=== PATIENT | male | born 1995 | race Caucasian/White ===

== ENCOUNTER 2025-04-23 05:38 | Emergency (ER) | payer OTHER, SELFPAY ==
[2025-04-23 05:39] VITALS: BP 139/98; PULSE 70; RESP 18; TEMP 36.3; O2SAT 100; BMI 27.6
--- OUTSIDE RECORDS SUMMARY | 2025-04-23 06:04 | XMS RPT_ITS | CCD ---
Author Organization [facility] Care Team Providers Care Recreation Leader Name Role Phone Unavailable Primary Care Provider SHANI Bermudez Attending Unavailable Medications Current Medications Medication Drug Class(es) Dates Sig (Normalized) Sig (Original) erythromycin 0.005 mg/mg ophthalmic ointment (1 source) Macrolide, Macrolide Antimicrobial Start: 12-26-2024 End: 01-02-2025 erythromycin (ROMYCIN) 5 mg/gram (0.5 %) ophthalmic ointment Indications: Acute right eye pain , Right eye sensitive to light Use 1 application in the right eye four times daily for 7 days. 3.5 g 12/26/2024 01/02/2025 Active tetracaine hydrochloride 5 mg/ml ophthalmic solution (1 source) [facility]est[facility] Start: 12-26-2024 End: 12-27-2024 tetracaine (PF) 0.5 % 1 drop (OPTICAINE) Completed/Discontinued Medications Medication Drug Class(es) Dates Sig (Normalized) Sig (Original) brompheniramine maleate 0.4 mg/ml / dextromethorphan hydrobromide 2 mg/ml / pseudoephedrine hydrochloride 6 mg/ml oral solution (5 sources) alpha-Adrenergic Agonist, Uncompetitive X-qwrbfn-S-aspartat e Receptor Antagonist, Sigma-1 Agonist Start: 01-18-2022 End: 12-26-2024 take 5 mL by mouth four times daily as needed Brompheniramine-P seudoeph-DM (BROMFED DM) 2-30-10 mg/5 mL syrup Indications: Viral URI Take 5 mL by mouth four times daily as needed. 118 mL 01/18/2022 12/26/2024 Discontinued (Other) Comment on above: Take 5 mL by mouth f our times daily as needed. diphenhydrAMINE-maalox -lidocaine (BMX 1:1:1) 1:1:1 liqd (5 sources) Start: 01-18-2022 End: 12-26-2024 take 5 mL by mouth four times daily diphenhydrAMINE-m aalox-lidocaine (BMX 1:1:1) 1:1:1 liqd Indications: Pharyngitis, unspecified etiology Take 5 mL by mouth four times daily. 120 mL 01/18/2022 12/26/2024 Discontinued (Other) Start: 01-18-2022 take 5 mL by mouth four times daily tckeclrlbaGDNCQ-xgnkgw-abcjntnxa (BMX 1: 1:1) 1:1:1 liqd Indications: Pharyngitis, unspecified etiology Take 5 mL by mouth four times daily. 120 mL 0 01/18/2022 Active Comment on above: Take 5 mL by mouth f our times daily. 12 hr guaiFENesin 600 mg extended release oral tablet (5 sources) Start: 01-18-2022 End: 12-26-2024 take 1 tablet by mouth twice daily guaiFENesin (MUCINEX) 600 mg 12 hr tablet Indications: Viral URI Take 1 tablet by mouth twice daily. 30 tablet 01/18/2022 12/26/2024 Discontinued (Other) Comment on above: Take 1 tablet by venancio twice daily. Problems Problem Classification Problem Date Documented Da te Episodic/Chronic Blindness and vision defects (3 sources) Eyes sensitive to light; Translations: [Visual discomfort, right eye] Onset: 12-26-2024 12-26-2024 Episodic Immunizations and screening for infectious disease (1 source) Contact with and (suspected) exposure to other viral communicable diseases; Translations: [Exposure to SARS-associated coronavirus] Episodic Other eye disorders (2 sources) Pain in eye; Translations: [Ocular pain, right eye] 12-26-2024 Episodic Other eye disorders (1 source) Ocular pain, right eye; Translations: [Acute right eye pain] Onset: 12-26-2024 Episodic Other upper respiratory infections (2 sources) Viral upper respiratory tract infection; Translations: [Acute upper respiratory infection, unspecified] Episodic Results Test Name Value Interpretation Reference Range Facil ity CNOVon 12-26-2024 CNOV Office Visit ([facility] ) ANTOINETTE KESSLER ([id number]) 1995 M Date Time Provider Department 12/26/24 2:10 PM SHANI READ During your visit today, we recorded the following information about you: Temperature Pulse Respiration Blood pressure 96.8 degrees 75/minute 18/minute 121/74 Weight Height 90.9 kg 1.854 m Shani Read APRN.[facility] 12/26/2024 2:38 PM Addendum [facility] Subjective The patient is a 29-year-old male presenting with acute right eye pain and photophobia. HPI Right Eye Pain and Photophobia: - Acute onset of right eye pain and photophobia began while sitting at work. - Describes sensation as if something is lodged in the eye. - Pain initially noticed with blinking, followed by increased watering and light sensitivity. - No known trauma or foreign body entry. - Denies flashes of light. - No significant crusting or drainage observed. Review of Systems Eyes: (+) right eye pain, (+) right eye foreign body sensation, (+) right photophobia, (+) right eye tearing, (-) ocular discharge, (-) flashes of light Objective BP 121/74 (BP Site: Right Arm, BP Position: Sitting, BP Cuff Size: Regular Adult) Pulse 75 Temp 36 ?C (96.8 ?F) (Right Tympanic) Resp 18 Ht 185.4 cm (6' 1) Wt 90.9 kg (200 lb 6.4 oz) SpO2 98% BMI 26.44 kg/m? Physical Exam General: No acute distress. HEENT: Right eyelid appears slightly swollen, no foreign bodies or debris observed in the right eye, no evidence of a stye or blocked pores. No uptake noted with fluorescine and tetracaine with hill lamp MDM 1. Acute right eye pain (H57.11) 2. Right eye sensitive to light (H53.141) - No foreign bodies or abrasions noted on examination; eyelid appears slightly swollen, but no blocked pores or stye observed. - Differential diagnoses include uveitis and episcleritis, which require ophthalmological evaluation. - Administered topical anesthetic and fluorescein dye; no corneal abrasions or foreign bodies detected. - Advised patient to seek immediate ophthalmological consultation for further evaluation and management. - Patient instructed to contact [facility] for a same-day appointment. - Will also contact [facility] to facilitate an appointment if needed. - No foreign body or corneal scratch was found after applying numbing drops and fluorescein dye; your right eyelid is slightly swollen. - The numbing drops will last for a few hours, reducing pain and light sensitivity temporarily. - Call [facility] now to request eye exam; with right eye pain and light sensitivity. - If [facility] cannot see you today, consider calling [facility] to find a same-day appointment Medical Decision Making: Problems: Moderate: New problem with uncertain prognosis Data: Unique test result(s) reviewed: 1 Unique test(s) ordered: 1 Risk: Moderate: Drug management Medical Decision Making Level: 4 - Moderate Procedures Allergies As of Date: 12/26/2024 (No Known Allergies) Date Reviewed: 12/26/2024 Reviewed by: Andriy Murry MA - Fully Assessed Reason for Visit: Conjunctivitis [24] Cmt: Possible pinkeye in the right eye that started yesterday, burning, light sensitivity, sinus congestion, feels like there is something in the top R eyelid, Primary Visit Diagnosis:Acute right eye pain [H57.11] Other Visit Diagnosis:Right eye sensitive to light [H53.141] Order(s):CONSULT TO OPHTHALMOLOGY [9024] Order #: [id number]: 1 FUTURE tetracaine (PF) 0.5 % 1 drop (OPTICAINE)Disp: Rfl: fluorescein 1 mg 1 strip (FLUORETS)Disp: Rfl: erythromycin (ROMYCIN) 5 mg/gram (0.5 %) ophthalmic ointmentUse 1 application in the right eye four times daily for 7 days.Disp: 3.5 gRfl: 0 Prescriptions as of 12/26/2024 - erythromycin (ROMYCIN) 5 mg/gram (0.5 %) ophthalmic ointment Use 1 application in the right eye four times daily for 7 days. Facility-Administered Medications as of 12/26/2024 - tetracaine (PF) 0.5 % 1 drop (OPTICAINE) - fluorescein 1 mg 1 strip (FLUORETS) Problem List As Of Date: 12/26/2024 (None) Prescriptions ordered this encounter Disp Refills Start End TETRACAINE HCL (PF) 0.5 % EYE DROPS 12/26/2024 12/27/2024 Route: OD FLUORESCEIN 1 MG EYE STRIPS 12/26/2024 12/27/2024 Route: OD ERYTHROMYCIN 5 MG/GRAM (0.5 %) EYE O* 3.5 g 0 12/26/2024 01/02/2025 Route: OD Sig: Use 1 application in the right eye four times daily for 7 days. Medications Discontinued During This Encounter Prescriptions - Brompheniramine-Pseudoe ph-DM (BROMFED DM) 2-30-10 mg/5 mL syrup (Discontinued) Reported on 02/01/2023 - diphenhydrAMINE-maalox- lidocaine (BMX 1:1:1) 1:1:1 liqd (Discontinued) Reported on 05/25/2022 - guaiFENesin (MUCINEX) 600 mg 12 hr tablet (Discontinued) Reported on 05/25/2022 Level of Service: OFFICE/OUTPATIENT ESTABLISHED LOW (more content not included)... Normal [facility] Urgent Care Visit Reporton 0 01-22-2021 Urgent Care Visit Report [facility] [address] [place] [address] OFFICE VISIT Date of Service: 01/22/21 MR#: [id number] Acct: [id number] Name: ANTOINETTE KESSLER Rep #: [id number] : 1995 Provider: SANDY Zaman Age/Sex: 25/M Location: [facility] Status: Signed Intake Vital Signs 01/22/21 17:25 Height 6 ft Weight: 175 lb BMI 23.7 BP 112/74 Blood Pressure Location Lt brachial Position Sitting Respiration 15 Pulse 75 Pulse Source Monitor Temp 98.3 F Temp Source Temporal Pulse Oximetry (%) 98 Intake Visit Reasons: COVID/EXPOSED/COUGH Allergies No Known Allergies Allergy (Unverified 01/22/21 17:32) Medications NK 01/22/21 [History Confirmed 01/22/21] HPI HPI Details: ANTOINETTE KESSLER, is a 25 M who presents to the office today for requesting Covid test after having been exposed to several coworkers to tested positive for Covid. Patient denies any current symptoms including no fever, chills, sweats. No nausea, vomiting, diarrhea. No cough no shortness of breath or difficulty breathing. No other associated symptoms or alleviating/aggravating factors. ROS Const Constitutional: Positive for other (6 system ROS completed with pertinent findings in the HPI otherwise normal.) Exam Const General: cooperative and healthy appearing [facility] Head: normocephalic and atraumatic Ears: hearing grossly normal bilaterally Nose: external nose normal Face and sinus: normal facial exam and face symmetric Mouth: oral mucosae normal Throat: posterior oropharynx normal Eyes General: appearance normal, both eyes and all related structures Resp Effort Inspection: normal respiratory effort Auscultation: Bilateral: Clear to Auscultation Cardio Palpation: normal PMI Rate: regular rate Rhythm: regular rhythm Skin General: no rashes or lesions noted Neuro General: patient alert and CN's II-XI intact bilaterally Psych Appearance: grossly normal Mental Status: mental status grossly normal Results POC KIM CoV-2 PCR POC KIM CoV-2 PCR Not Detected Last Edit by Ly Silvestre RN on 01/22/21 17:41 NEGATIVE FOR INFLUENZA A AND B Coding Level of Care Code Off vis,new,level 3 Diagnoses Contact with or suspected exposure to other viral communicable disease Z20.828 Assessment and Plan Assessment and Plan (1) Contact with or suspected exposure to other viral communicable disease: Status: Acute Plan - SANDY Ocampo: Patient tested negative for Covid using rapid PCR testing in the office today. Patient given a results paperwork. Patient verbalized understanding and agreement of the above. Plan Details Other Orders: Orders: POC Rapid KIM Cov-2 PCR Today J02.9 01/22/21 1817 Date Shahab DELGADO Cosigner Signature: Date (if applicable) CC: Normal [facility] Vital Signs Date Time Vital Sign Value Performing Clinician Esperanza delgado 12-26-2024 14:18-0400 Body height 185.4 cm Shani Ball PACK ROOM OPERATOR.RFID ENGINEER Work Phone: [facility] 12-26-2024 14:18-0400 Body mass index (BMI) [Ratio] 26.44 kg/m2 Shani Ball PACK ROOM OPERATOR.RFID ENGINEER Work Phone: [facility] 12-26-2024 14:18-0400 Body temperature 96.8 [degF] Shani Ball PACK ROOM OPERATOR.RFID ENGINEER Work Phone: [facility] 12-26-2024 14:18-0400 Body weight 90.9 kg Shani Ball PACK ROOM OPERATOR.RFID ENGINEER Work Phone: [facility] 12-26-2024 14:18-0400 Diastolic blood pressure 74 mm[Hg] Shani Ball PACK ROOM OPERATOR.RFID ENGINEER Work Phone: [facility] 12-26-2024 14:18-0400 Heart rate 75 /min Shani Ball PACK ROOM OPERATOR.RFID ENGINEER Work Phone: [facility] 12-26-2024 14:18-0400 Respiratory rate 18 /min Shani Ball PACK ROOM OPERATOR.RFID ENGINEER Work Phone: [facility] 12-26-2024 14:18-0400 SaO2% (BldA) [Mass fraction] 98 % Shani Ball PACK ROOM OPERATOR.RFID ENGINEER Work Phone: [facility] 12-26-2024 14:18-0400 Systolic blood pressure 121 mm[Hg] Shani Ball PACK ROOM OPERATOR.RFID ENGINEER Work Phone: [facility] 05-25-2022 11:34-0500 Body height 182.9 cm Estefani Grayer PACK ROOM OPERATOR.RFID ENGINEER Work Phone: [facility] 05-25-2022 11:34-0500 Body temperature 98.01 [degF] Estefani Grayer PACK ROOM OPERATOR.RFID ENGINEER Work Phone: [facility] 05-25-2022 11:34-0500 Body weight 85.28 kg Estefani Peters PACK ROOM OPERATOR.RFID ENGINEER Work Phone: [facility] 05-25-2022 11:34-0500 Diastolic blood pressure 68 mm[Hg] Estefani Peters PACK ROOM OPERATOR.RFID ENGINEER Work Phone: [facility] 05-25-2022 11:34-0500 Heart rate 74 /min Estefani Peters PACK ROOM OPERATOR.RFID ENGINEER Work Phone: [facility] 05-25-2022 11:34-0500 Respiratory rate 16 /min Estefani Peters PACK ROOM OPERATOR.RFID ENGINEER Work Phone: [facility] 05-25-2022 11:34-0500 SaO2% (BldA) [Mass fraction] 98 % Estefani Peters PACK ROOM OPERATOR.RFID ENGINEER Work Phone: [facility] 05-25-2022 11:34-0500 Systolic blood pressure 106 mm[Hg] Estefani Peters PACK ROOM OPERATOR.RFID ENGINEER Work Phone: [facility] 01-18-2022 13:48-0400 Body height 182.9 cm Shani Ball PACK ROOM OPERATOR.RFID ENGINEER Work Phone: [facility] 01-18-2022 13:48-0400 Body weight 83.92 kg Shani Ball PACK ROOM OPERATOR.RFID ENGINEER Work Phone: [facility] 01-18-2022 13:48-0400 Diastolic blood pressure 71 mm[Hg] Shani Ball PACK ROOM OPERATOR.RFID ENGINEER Work Phone: [facility] 01-18-2022 13:48-0400 Heart rate 98 /min Shani Ball PACK ROOM OPERATOR.RFID ENGINEER Work Phone: [facility] 01-18-2022 13:48-0400 Respiratory rate 16 /min Shani Ball PACK ROOM OPERATOR.RFID ENGINEER Work Phone: [facility] 01-18-2022 13:48-0400 SaO2% (BldA) [Mass fraction] 98 % Shani Ball PACK ROOM OPERATOR.RFID ENGINEER Work Phone: [facility] 01-18-2022 13:48-0400 Systolic blood pressure 107 mm[Hg] Shani Ball PACK ROOM OPERATOR.RFID ENGINEER Work Phone: [facility] Encounters Encounter Date Encounter Type Care Provider Facility Start: 12-26-2024 End: 12-26-2024 Office outpatient visit 15 minutes Shani Read APRN.CNP Work Phone: [facility] Comment on above: Acute right eye pain (Primary Dx); Right eye sensitive to light Start: 12-26-2024 End: 12-26-2024 ambulatory SHANI READ Facility:[facility] Start: 05-26-2022 Telephone encounter Soledad edgar PA-C Work Phone: [facility] Comment on above: Results Start: 05-25-2022 End: 05-25-2022 Patient encounter procedure Estefani Peters APRN.CNP Work Phone: [facility] Comment on above: Exposure to SARS-ass ociated coronavirus (Primary Dx) Start: 01-19-2022 Telephone encounter Soledad edgar PA-C Work Phone: [facility] Comment on above: Results Start: 01-18-2022 End: 01-18-2022 Office outpatient new 20 minutes Shani Read APRN.CNP Work Phone: [facility] Comment on above: Viral URI (Primary D x); Pharyngitis, unspecified etiology Plan of Treatment Date Care Activity Detail Author Start: 02-17-2025 Influenza vaccination Influenza Vacc ine (#1) [facility] Start: 02-18-2024 Covid-19 Vaccine ( season) Covid-19 Vaccine ( season) [facility] Start: 02-17-2022 Influenza vaccination INFLUENZA (#1) [facility] Start: 06-19-2021 DEPRESSION ASSESSMENT DEPRESSION ASS ESSMENT [facility] Start: 08-17-2014 Hepatitis B Vaccine (1 of 3 - 19+ 3-dose series) Hepatitis B Vaccine (1 of 3 - 19+ 3-dose series) [facility] Start: 08-17-2014 Urine microalbumin profile [facility] Start: 08-17-2013 Anxiety Screening Anxiety Screening [facility] Start: 08-17-2013 Depression Screening Depression Scre ening [facility] Start: 08-17-2013 HEPATITIS C SCREENING HEPATITIS C [facility] Start: 08-17-2013 Hepatitis C screening Hepatitis C [facility] Start: 08-17-2013 HIV SCREENING HIV SCREENING [facility] Start: 08-17-2013 HIV screening HIV Screening [facility] Start: 08-17-2009 PEDS TO ADULT TRANSITION ANNUAL ASSESSMENT PEDS TO ADULT TRANSITION ANNUAL ASSESSMENT [facility] Start: 2007 Adult depression screening assessment DEPRESSION SCREENING [facility] Start: 2007 PEDS TO ADULT TRANSITION INITIAL DISCUSSION PEDS TO ADULT TRANSITION INITIAL DISCUSSION [facility] Start: 08-17-2006 HPV VACCINE (1 - Mal e 2-dose series) HPV VACCINE (1 - Male 2-dose series) [facility] Start: 02-18-1996 COVID-19 VACCINE (#1) COVID-19 VACCI NE (#1) [facility] Start: 1995 HEPATITIS B (1 of 3 - 3-dose series) HEPATITIS B (1 of 3 - 3-dose series) [facility] Influenza virus A an d B RNA and SARS-CoV-2 (COVID-19) N gene panel - Respiratory specimen by SHARRON with probe detection COVID WITH FLUA+B, ROUTINE Microbiology Today Viral URI Ordered: 01/18/2022 [facility] Work Phone: Comment on above: Ordered: 01/18/2022 Influenza virus A an d B RNA and SARS-CoV-2 (COVID-19) N gene panel - Respiratory specimen by SHARRON with probe detection COVID WITH FLUA+B, ROUTINE Microbiology Routine Exposure to SARS-associated coronavirus Ordered: 05/25/2022 [facility] Work Phone: Comment on above: Ordered: 05/25/2022 Payers Date Payer Category Payer Private Health Insurance [id number] 2021 Private Health Insurance [employer] A ETNA CHOICE POS II [id number] 2021-Present [phone] [address] [place] [address] POS [id number] 2021 Private Health Insurance [id number] Social History Date Type Detail Facility Tobacco smoking status NHIS Tobacco smoking consumption unknown [facility] Work Phone: Start: 1995 Sex Assigned At Not on file [facility] Start: 01-08-2022 End: 01-18-2022 Exposure to SARS-CoV-2 (event) Not sure [facility] Gender identity Not on file [facility] Procedure Code Equipment Code Equipment Origin al Text Equipment Identifier Dates fluorescein 1 mg 1 strip (FLUORETS) Start: 12-26-2024 End: 12-27-2024 Progress note 12-26-2024 Note Date & Type Note Facility 12-26-2024 Note HNO ID: [id number] Author: SHANI READ APRN.RFID ENGINEER Service: ? Author Type: Nurse Practitioner Type: Progress Notes Filed: 12/26/2024 14:38 Note Text: [facility] Subjective The patient is a 29-year-old male presenting with acute right eye pain and photophobia. HPI Right Eye Pain and Photophobia: - Acute onset of right eye pain and photophobia began while sitting at work. - Describes sensation as if something is lodged in the eye. - Pain initially noticed with blinking, followed by increased watering and light sensitivity. - No known trauma or foreign body entry. - Denies flashes of light. - No significant crusting or drainage observed. Review of Systems Eyes: (+) right eye pain, (+) right eye foreign body sensation, (+) right photophobia, (+) right eye tearing, (-) ocular discharge, (-) flashes of light Objective BP 121/74 (BP Site: Right Arm, BP Position: Sitting, BP Cuff Size: Regular Adult) Pulse 75 Temp 36 ?C (96.8 ?F) (Right Tympanic) Resp 18 Ht 185.4 cm (6' 1) Wt 90.9 kg (200 lb 6.4 oz) SpO2 98% BMI 26.44 kg/m? Physical Exam General: No acute distress. HEENT: Right eyelid appears slightly swollen, no foreign bodies or debris observed in the right eye, no evidence of a stye or blocked pores. No uptake noted with fluorescine and tetracaine with hill lamp MDM 1. Acute right eye pain (H57.11) 2. Right eye sensitive to light (H53.141) - No foreign bodies or abrasions noted on examination; eyelid appears slightly swollen, but no blocked pores or stye observed. - Differential diagnoses include uveitis and episcleritis, which require ophthalmological evaluation. - Administered topical anesthetic and fluorescein dye; no corneal abrasions or foreign bodies detected. - Advised patient to seek immediate ophthalmological consultation for further evaluation and management. - Patient instructed to contact [facility] for a same-day appointment. - Will also contact [facility] to facilitate an appointment if needed. - No foreign body or corneal scratch was found after applying numbing drops and fluorescein dye; your right eyelid is slightly swollen. - The numbing drops will last for a few hours, reducing pain and light sensitivity temporarily. - Call [facility] now to request eye exam; with right eye pain and light sensitivity. - If [facility] cannot see you today, consider calling [facility] Ophthal[facility] to find a same-day appointment Medical Decision Making: Problems: Moderate: New problem with uncertain prognosis Data: Unique test result(s) reviewed: 1 Unique test(s) ordered: 1 Risk: Moderate: Drug management Medical Decision Making Level: 4 - Moderate Procedures [facility] History of Present illness Narrative 12-26-2024 Shani Read APRN.[facility] - 12/26/2024 2:31 PM EDT Note Date & Type Note Facility 12-26-2024 History of Presen t illness Narrative [facility] Subjective The patient is a 29-year-old male presenting with acute right eye pain and photophobia. HPI Right Eye Pain and Photophobia: - Acute onset of right eye pain and photophobia began while sitting at work. - Describes sensation as if something is lodged in the eye. - Pain initially noticed with blinking, followed by increased watering and light sensitivity. - No known trauma or foreign body entry. - Denies flashes of light. - No significant crusting or drainage observed. Review of Systems Eyes: (+) right eye pain, (+) right eye foreign body sensation, (+) right photophobia, (+) right eye tearing, (-) ocular discharge, (-) flashes of light Objective BP 121/74 (BP Site: Right Arm, BP Position: Sitting, BP Cuff Size: Regular Adult) Pulse 75 Temp 36 C (96.8 F) (Right Tympanic) Resp 18 Ht 185.4 cm (6' 1) Wt 90.9 kg (200 lb 6.4 oz) SpO2 98% BMI 26.44 kg/m Physical Exam General: No acute distress. HEENT: Right eyelid appears slightly swollen, no foreign bodies or debris observed in the right eye, no evidence of a stye or blocked pores. No uptake noted with fluorescine and tetracaine with hill lamp MDM 1. Acute right eye pain (H57.11) 2. Right eye sensitive to light (H53.141) - No foreign bodies or abrasions noted on examination; eyelid appears slightly swollen, but no blocked pores or stye observed. - Differential diagnoses include uveitis and episcleritis, which require ophthalmological evaluation. - Administered topical anesthetic and fluorescein dye; no corneal abrasions or foreign bodies detected. - Advised patient to seek immediate ophthalmological consultation for further evaluation and management. - Patient instructed to contact [facility] for a same-day appointment. - Will also contact [facility] to facilitate an appointment if needed. - No foreign body or corneal scratch was found after applying numbing drops and fluorescein dye; your right eyelid is slightly swollen. - The numbing drops will last for a few hours, reducing pain and light sensitivity temporarily. - Call [facility] now to request eye exam; with right eye pain and light sensitivity. - If [facility] cannot see you today, consider calling [facility] to find a same-day appointment Medical Decision Making: Problems: Moderate: New problem with uncertain prognosis Data: Unique test result(s) reviewed: 1 Unique test(s) ordered: 1 Risk: Moderate: Drug management Medical Decision Making Level: 4 - Moderate Procedures documented in this encounter [facility] Note 05-27-2022 Telephone Encounter - Taylor Tate PA-C - 05/27/2022 11:47 AM ESTTelephone Encounter - Soledad Schmitz PA-C - 05/26/2022 4:30 PM EST Note Date & Type Note Facility 05-27-2022 Miscellaneous Notes Formattin g of this note might be different from the original. Attempted to call patient again. There is only one phone number listed in the chart and it is the wrong number. This provider called and left a message. If the patient calls back, please inform him that- Please be aware that your test was positive for influenza A. Your test was negative for COVID. Influenza or flu is a virus, and so, it cannot be treated with antibiotics. Please manage your symptoms with cvmo-ehe-ktppaen cough/sinus/fever care. You may return to work/school once you are without fever/chills/sweats/body aches for at least 24 hours without the aid of fever reducing medications. Please seek further medical care for any worsening symptoms or for fever lasting more than 5 days. Soledad Schmitz PA-C documented in this encounter [facility] History of Present illness Narrative 05-25-2022 Estefani Peters APRN.RFID ENGINEER - 05/25/2022 11:44 AM EST Note Date & Type Note Facility 05-25-2022 History of Presen t illness Narrative SUBJECTIVE: Antoinette Kessler is a 26 year old male. Who presents today with cough, fever 102.5, nasal congestion, headache, fatigue for a week. He has taken dayquil and robitussin. He has had exposure to others who are sick. He would like covid and flu testing today. HPI No past medical history on file. No family history on file. ALLERGIES No Known Allergies Current Outpatient Medications Medication Sig Dispense Refill Agwqbredcxtlcjo-Hribxwlwm-WX (BROMFED DM) 2-30-10 mg/5 mL syrup Take 5 mL by mouth four times daily as needed. (Patient not taking: Reported on 05/25/2022) 118 mL 0 gmvaipfnhfMDWND-qkotrk-yryiqagop (BMX 1:1:1) 1:1:1 liqd Take 5 mL by mouth four times daily. (Patient not taking: Reported on 05/25/2022) 120 mL 0 guaiFENesin (MUCINEX) 600 mg 12 hr tablet Take 1 tablet by mouth twice daily. (Patient not taking: Reported on 05/25/2022) 30 tablet 0 No current facility-administered medications for this visit. OBJECTIVE: BP 106/68 Pulse 74 Temp 36.7 C (98 F) Resp 16 Ht 182.9 cm (6') Wt 85.3 kg (188 lb) SpO2 98% BMI 25.50 kg/m ROS: All systems reviewed and are otherwise negative Constitutional: Well developed, well nourished, A&O X3. ENT: Head is atraumatic, airway patent, mucosal membranes moist Eyes: EOMI, PERRL, no drainage, vision unchanged Neck: full ROM, no meningeal signs Cardiac: heart tones regular rate and rhythm Respiratory: lung CTA : no CVA tenderness MS: moves all extremities, no deformities noted Neuro: GCS 15 no focal deficits Skin: warm and dry with out rash, lesion or ecchymosis Psych: alert appropriate, speech clear Diagnostic testing: COVID/ Influenza A and B testing performed and results will be complete in the next 24-72 hours. The patient will be notified of the results in My Chart. MDM: Patient presented to the [facility] today for COVID and Influenza testing. Vital signs were evaluated and found to be within normal limits. Antoinette Kessler was in no acute distress. We discussed the COVID results will be back in the next 1-2 days. In accordance with the CDC guidelines, Antoinette Kessler was instructed to quarantine, if indicated, based on symptoms and exposure. He may use otc medications as discussed in the office visit They will follow-up with their family doctor in the next 2-3 days. If symptoms worsen they will go straight to the emergency department for further evaluation and treatment. They voiced understanding of the plan of care and are in agreement. ASSESSMENT/PLAN: 1. Exposure to SARS-associated coronavirus - ICD9: V01.82, ICD10: Z20.828 - COVID WITH FLUA+B, ROUTINE Estefani Peters APRN.CNP documented in this encounter [facility] Note 01-20-2022 Telephone Encounter - Madison Sauceda APRN.CNP - 01/20/2022 8:06 AM EDTTelephone Encounter - Soledad Schmitz PA-C - 01/19/2022 7:31 AM EDT Note Date & Type Note Facility 01-20-2022 Miscellaneous Notes Attempted to reach again, no answer. Please review previous message if a call back is made. This provider called and left a message for the patient to call back for nasal swab results. If the patient calls back, please inform them that- Please be aware that your COVID-19 and influenza tests are negative. Please continue the plan of care as discussed at your clinic visit. Follow up with your primary care physician for any new or persisting fever or worsening or changing symptoms. Please refrain from work/school and isolate yourself until - -At least 24 hours have passed since last fever without the use of fever-reducing medications Soledad cShmitz PA-C documented in this encounter [facility] Instructions 01-18-2022 Patient Instructions Note Date & Type Note Facility 01-18-2022 Instructions Shani Read APRN.CNP - 01/18/2022 2:21 PM EDT IBU and tylenol, rotate them around the clock for 24 hours. Push lots of fluids UPPER RESPIRATORY INFECTIONS Most cases are caused by viruses and most cases are mild, temporary, and harmless. Symptoms can last 2 to 3 weeks and can include: nasal congestion, sore throat, coughing, muscles aches, headaches, nausea, diarrhea, fatigue and fever. Now that you have been examined, if you are not feeling better within 2-3 weeks, please call back. In the meantime, please: 1. Drink plenty of fluids. 2. Get lots of rest. 3. Avoid dehydrants such as caffeine and alcohol. 4. Nasal saline is an effective decongestant and be used frequently throughout the day. 5. To loosen phlegm and help coughing, drink plenty of fluids and using a humidifier. 6. For sore throats, it is ok to use cough drops, throat sprays, or gargling warm salt water. 7. Always cover your mouth when you cough or sneeze, and wash your hands frequently. Avoid crowded areas like shopping centers, movies while you are sick so you don't miner pick a different virus, or infect others. 8. Avoid exposure to cigarettes or fumes. 9. Avoid irritants such as potpourri, dust, perfumes, scented candles and scented sprays 10. Air conditioning is an effective allergen and irritant avoidance strategy in the spring, summer and fall. 11. Honey is an effective cough suppressant. Try one tsp two to three times per day. The below information is from prescrib[employer]letter[employer]: Antibiotics Will rarely help an upper respiratory infections. Antibiotics lead to more resistant infections that are harder to treat. There is little to no benefit to taking antibiotics for most acute upper respiratory tract infections. documented in this encounter [facility] History of Present illness Narrative 01-18-2022 Shani Read APRN.CNP - 01/18/2022 2:05 PM EDT Note Date & Type Note Facility 01-18-2022 History of Presen t illness Narrative This note was created using NoteWriter. William Kessler is a 26 year old male. HPI by patient: Antoinette is a 26 yo male presenting to the office with the complaint of URI symptoms Started approximately 01/12 Associated symptoms include DELEON, sore throat, ear ache, body aches, PND, fever and chills Denies any other concerns Vaccinated for influenza: No Covid Immunization Dates Overdue - COVID-19 VACCINE (1) Overdue - never done No completion, postpone, frequency change, or communication history exists for this topic. Personal history of Covid: No Flu/RSV contacts: no Strep contacts: no Sick contacts: yes, works in a intermediate Covid + contacts: possibly at work Travel in the last 14 days: no Smoking history/second hand smoke: no OTC nothing no antibiotic use in the last 30 days. ALLERGIES No Known Allergies No family history on file. Social History Tobacco Use Smoking status: Not on file Smokeless tobacco: Not on file Alcohol use: Not on file Drug use: Not on file Review of Systems Constitutional: Positive for chills, fatigue and fever. HENT: Positive for congestion, ear pain, postnasal drip and sore throat. Negative for rhinorrhea. Respiratory: Positive for cough. Cardiovascular: Negative for chest pain. Allergic/Immunologic: Negative for immunocompromised state. Neurological: Positive for headaches. Hematological: Negative for adenopathy. Objective BP 107/71 Pulse 98 Resp 16 Ht 182.9 cm (6') Wt 83.9 kg (185 lb) SpO2 98% BMI 25.09 kg/m Physical Exam Vitals and nursing note reviewed. Constitutional: Appearance: He is well-developed. HENT: Right Ear: Tympanic membrane and ear canal normal. Left Ear: Tympanic membrane and ear canal normal. Nose: Congestion and rhinorrhea present. Mouth/Throat: Mouth: Mucous membranes are moist. Pharynx: Oropharynx is clear. Uvula midline. Posterior oropharyngeal erythema present. No oropharyngeal exudate. Cardiovascular: Rate and Rhythm: Normal rate and regular rhythm. Heart sounds: Normal heart sounds. Pulmonary: Effort: Pulmonary effort is normal. Breath sounds: Normal breath sounds. Lymphadenopathy: Cervical: No cervical adenopathy. Skin: General: Skin is warm and dry. Neurological: Mental Status: He is alert and oriented to person, place, and time. Assessment and Plan ASSESSMENT/PLAN: 1. Viral URI - ICD9: 465.9, ICD10: J06.9 (primary diagnosis) - Discussed viral etiology and rationale for treatment. - Symptomatic treatment with prn analgesia - Supportive care with fluids and rest - UTGLADURCXOKFIZ-JMRYOPXIGNYMXDU-AA 2 MG-30 MG-10 MG/5 ML ORAL SYRUP - GUAIFENESIN ER 600 MG TABLET, EXTENDED RELEASE 12 HR - Covid testing 2. Pharyngitis, unspecified etiology - ICD9: 462, ICD10: J02.9 - suspect viral - PPNRBNDNYKABTII-DZGONUD-LYISLMMNY ([facility]) Shani Read APRN.CECILE Medical Decision Making: Problems: Moderate: New problem with uncertain prognosis Data: Unique test(s) ordered: 1 Risk: Moderate: Drug management Medical Decision Making Level: 4 - Moderate This patient encounter involved the screening or treatment of novel coronavirus infection (COVID-19). documented in this encounter [facility] Evaluation note Note Date & Type Note Facility Evaluation note Diagnosis Viral URI- Primary Acute upper respiratory infections of unspecified site Pharyngitis, unspecified etiology documented in this encounter [facility] Evaluation note Note Date & Type Note Facility Evaluation note Diagnosis Exposure to SARS-associated coronavirus- Primary documented in this encounter [facility] Evaluation note Note Date & Type Note Facility Evaluation note Diagnosis Acute right eye pain- Primary Pain in or around eye Right eye sensitive to light documented in this encounter [facility] Summary Purpose Family History No Family History Records FoundNo Family History Records Found Advance Directives No Advanced Directives Records FoundNo Advanced Directives Records Found Additional Source Comments (unrecognized sect ion and content) No Status Records FoundNo Status Records Found INFORMATION SOURCE (unrecogn ized section and content) DATE CREATED AUTHOR 01/24/2021 [facility] DATE CREATED AUTHOR AUTHOR'S ORGANIZ ATION 12/31/2024 [facility] Source Comments (unrecognize d section and content) In the event this informatio n is protected by the Federal Confidentiality of Alcohol and Drug Abuse Patient Records regulations: The Federal rules restrict any use of the information to criminally investigate or prosecute any alcohol or drug abuse patient.[facility] the event this information is protected by the Federal Confidentiality of Alcohol and Drug Abuse Patient Records regulations: The Federal rules restrict any use of the information to criminally investigate or prosecute any alcohol or drug abuse patient.[facility] the event this information is protected by the Federal Confidentiality of Alcohol and Drug Abuse Patient Records regulations: The Federal rules restrict any use of the information to criminally investigate or prosecute any alcohol or drug abuse patient.[facility] the event this information is protected by the Federal Confidentiality of Alcohol and Drug Abuse Patient Records regulations: The Federal rules restrict any use of the information to criminally investigate or prosecute any alcohol or drug abuse patient.[facility] the event this information is protected by the Federal Confidentiality of Alcohol and Drug Abuse Patient Records regulations: The Federal rules restrict any use of the information to criminally investigate or prosecute any alcohol or drug abuse patient.[facility] Reason for Visit (unrecogniz ed section and content) Reason Comments Facial Swelling facial pain on the r ight side. Started about a week ago Reason Comments Results Reason Comments Viral Syndrome Started monday, co ugh, fever Reason Comments Conjunctivitis Possible pinkeye in the right eye that started yesterday, burning, light sensitivity, sinus congestion, feels like there is something in the top R eyelid, FOR RECORDS PERTAINING TO PATIENTS WHO ARE OR HAVE BEEN ENROLLED IN A CHEMICAL DEPENDENCY/SUBSTANCEABUSE PROGRAM, SOME INFORMATION MAY BE OMITTED. This clinical summary was aggregated from multiple sources. Caution should be exercised in using it in the provision of clinical care. This summary normalizes information from multiple sources, and as a consequence, information in this document may materially change the coding, format and clinical context of patient data. In addition, data may be omitted in some cases. CLINICAL DECISIONS SHOULD BE BASED ON THE PRIMARY CLINICAL RECORDS. [employer] provides no warranty or guarantee of the accuracy or completeness of information in this document.
[2025-04-23 06:05] LABS: Hematocrit 44.3 % (40-54); Hemoglobin 14.5 g/dL (13.0-16.5); Immature Granulocytes Count 0.030 X10^3/uL (0.0-0.0); Mean Corp Hgb Conc 32.7 g/dL (32-36); Mean Corpuscular Volume 93.1 fL (80-94); Mean Platelet Vol. 12.5 fl (6.2-12.0); NRBC Flagged by Analyzer 0 % (0-5); Platelet Count 252 K/mm3 (150-450); RBC Distribution Width CV 12.7 % (11.6-14.6); RBC Distribution Width SD 43.5 fl (35.1-43.9); Red Blood Count 4.76 M/mm3 (4.6-6.2); White Blood Count 10.3 K/mm3 (4.4-11.0)
[2025-04-23] MEDS: Ketorolac 30 MG/ML Syringe IV (06:06)
[2025-04-23] MEDS: 0.9% Normal Saline (1000mL) 1,000 ML 999 ML IV (06:06)
[2025-04-23 06:17] LABS: Mucous, Urine 0 SEEN /hpf (<or=2+); Red Blood Cells-Urine 0 SEEN /hpf (0-5); Squamous Epithelial Cells - UA 0 SEEN /hpf (0-5)
--- NOTE | 2025-04-23 06:20 | CT_ITS ---
PROCEDURE: ABDOMEN/PELVIS WITHOUT CONT 04/23/2025 REASON FOR EXAM: RIGHT FLANK PAIN TECHNIQUE: Procedure Code: CTABDPEL Modality: CT Procedure: ABDOMEN/PELVIS WITHOUT CONT Noncontrast technique limits evaluation of the abdominal and pelvic viscera. Coronal and Sagittal reconstruction series were provided. One or more dose reduction techniques were used (e.g., Automated exposure control, adjustment of the mA and/or kV according to patient size, use of iterative reconstruction technique). RADIATION DOSE SUMMARY: DLP: 482 mGycm COMPARISON: None FINDINGS: Lung bases: Clear unremarkable Liver: Unremarkable Gallbladder: Unremarkable Spleen: Unremarkable Pancreas: Unremarkable Adrenals: Unremarkable Kidneys: Right kidney shows moderate hydronephrosis with dilation of the right ureter to the level of a 0.25 cm stone in the distal right ureter at the bladder base, image 164/204. The left kidney shows no stone or hydronephrosis. Bladder: Unremarkable Reproductive Organs: Unremarkable Bowel: Gas and stool is noted in the colon with a minimal stool load. Small bowel loops are not distended. Appendix: Within normal limits. Lymph nodes: There is no pathologic adenopathy by size criteria. Vasculature: There is no significant atherosclerosis. Peritoneum / Retroperitoneum: There is no free air or free fluid. Bones: There is no acute bony abnormality. CT/Abdomen/Pelvis without Cont IMPRESSION: The right kidney shows moderate hydronephrosis with dilation of the right urete r to the level of a 0.25 cm stone in the distal right ureter at the bladder base, image 164/204. Reading Location: [facility]
[2025-04-23 06:24] LABS: Color, Urine Yellow (Yellow); Glucose, Dipstick Normal (Normal); Ketone-Dipstick Negative (Negative); Leukocyte Esterase-Dipstick Negative /ul (Negative); Nitrite-Dipstick Negative (Negative); Occult Blood-Urine Negative /ul (Negative); Protein-Dipstick 15 mg/dl (Negative); Specific Gravity, Urine 1.025 (1.002-1.030); Urine Bilirubin Dipstick Negative (Negative)
[2025-04-23 06:25] LABS: Anion Gap 11 (5-15); BUN 16 mg/dL (4-19); BUN/Creat Ratio 13.3 RATIO (10-20); Calcium,Total 9.2 mg/dL (7.6-11.0); Carbon Dioxide 25.6 mmol/L (21.0-32.0); Chloride 103 mmol/L (98-108); Estimated Creatinine Clearance 98.87 ml/min (50-250); Glucose 127 mg/dL (70-99); Potassium 4.0 mmol/L (3.3-5.1)
--- NOTE | 2025-04-23 07:30 | EX.ED.DYSGE1 ---
HPI History of Present Illness Chief Complaint: Flank Pain Informant: patient Narrative Narrative: Patient is a 29-year-old male with no reported significant past medical history. 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 He states he was just kind of standing around when he noticed sharp pain in the right mid/low back. He states that there was no trauma or excessive activity. He states as time passed the sharp pain began to radiate towards the abdomen. He states it did not seem to improve or worsen with any type of position. He reports he was able to finish his shift but secondary to the persistent pain for the last few hours he presents for evaluation. He states he has not noticed any dark or discolored urine and he denies any dysuria. Regarding the back pain he also denies any loss of bowel or bladder control or IV drug use PFSH PFSH Medical History no medical history no medical history Home Medications ?Medication ?Instructions ?Recorded ?Last Taken ?Type NK 01/22/21 Unknown History Allergy/AdvReac Type Severity Reaction Status Date / Time No Known Allergies Allergy Verified 04/23/25 05:38 Surgical History no surgical history Social History Smoking Status: Never smoker ROS ROS ED Constitutional Constitutional ED: Denies chills or fever(s) ENT ENT ED: Denies sore throat Cardiovascular Cardiovascular: Denies chest pain Respiratory/Chest Respiratory/Chest: Denies cough or dyspnea Gastrointestinal Gastrointestinal: Reports abdominal pain; Denies diarrhea, nausea or vomiting Genitourinary Genitourinary ED: Denies dysuria or hematuria Musculoskeletal Musculoskeletal: Reports back pain Integumentary Denies rash Neurologic Neurologic: Denies headache(s) Hematologic/Lymphatic Hematologic/Lymphatic: Denies easy bleeding or easy bruising EXAM Physical Exam Const Vital Signs: 04/23/25 05:39 04/23/25 07:37 Temperature 97.4 F L 98.0 F Temperature Source Oral Pulse Rate 70 76 Respiratory Rate 18 14 Blood Pressure 139/98 H 139/70 H Blood Pressure Mean 111 93 Pulse Ox 100 100 Positive well nourished and well developed General Appearance ED: well developed; Negative for pallor HEENT HEENT Narrative: Normocephalic atraumatic Eyes PERRL and EOMs intact bilaterally General Eye ED: Negative for scleral icterus Neck supple Resp normal respiratory effort and clear to auscultation bilaterally Cardio regular rate and regular rhythm Rate: other Other Details: Regular rate and rhythm without murmurs rubs or gallop Radial and carotid pulses are equal and symmetric GI non-distended and no masses GI Narrative: Abdomen is soft and nondistended with normal active bowel sounds. Patient has pain with palpation along the right lateral abdomen diffusely but greatest towards the right upper quadrant region No voluntary guarding or rigidity. Negative Brown sign No pulsatile mass Auscultation: normoactive bowel sounds Palpation: soft Back/Spine Back/Spine Narrative: Positive right CVA pain noted Extremity normal to inspection Neuro oriented x3, CN's II-XII intact bilaterally and no sensory deficits noted Sensorium / Orientation: alert Motor Exam: strength 5/5 throughout Psych mental status grossly normal Skin no rashes or lesions noted and no wounds Skin Narrative: No overlying soft tissue changes to suggest trauma or infection General Skin Exam: Negative for jaundice or pallor MDM MDM MDM Narrative Medical decision making narrative: Patient arrived to the ER slightly hypertensive otherwise with stable vitals. He reported sudden onset right sided back pain without trauma while at work. He denies any dysuria or hematuria. He denies any loss of bowel or bladder control or IV drug use going against cauda equina or epidural abscess. Pain is lateral and not over midline to the right low concern for compression fracture. Based on his presentation kidney stone would be the most likely diagnosis. In order to rule out also potentially UTI or pyelonephritis I did elect to perform basic laboratory studies with urine sample and a noncontrast CT. workup reveals no sign of UTI/pyelonephritis. Kidney function is normal going against acute kidney injury. He is not febrile there is no leukocytosis or left shift and he does not show findings concerning for urosepsis. CT scan did confirm a 2.5 mm stone in the right distal UVJ consistent with his symptoms and history. After receiving IV fluids and Toradol the patient reported resolution of pain. Therefore at this time he does not have urosepsis he does not have acute kidney injury he is not intractable pain and therefore there is no need for emergent urology consultation or intervention. Patient can be discharged home and follow-up as an outpatient History & Record Review Discussion w/independent historian: Patient Lab Data Attestation: I reviewed the patient's lab results. Labs: Laboratory Results - last 24 hr 04/23/25 04/23/25 05:43 06:04 WBC 10.3 RBC 4.76 Hgb 14.5 Hct 44.3 MCV 93.1 MCH 30.5 MCHC 32.7 RDW Std Deviation 43.5 RDW Coeff of Lori 12.7 Plt Count 252 MPV 12.5 H Immature Gran % (Auto) 0.300 Neut % (Auto) 47.5 Lymph % (Auto) 42.8 H Dixie % (Auto) 7.8 Eos % (Auto) 0.9 Baso % (Auto) 0.7 Absolute Neuts (auto) 4.9 Absolute Lymphs (auto) 4.40 Nucleated RBC % 0 Sodium 140 Potassium 4.0 Chloride 103 Carbon Dioxide 25.6 Anion Gap 11 BUN 16 Creatinine 1.21 H Estim Creat Clear Calc 98.87 Est GFR (MDRD) Non-Af 83 BUN/Creatinine Ratio 13.3 Glucose 127 H Calcium 9.2 Urine Color Yellow Urine Clarity Clear Urine pH 6.0 Ur Specific [place] 1.025 Urine Protein 15 H Urine Glucose (UA) Normal Urine Ketones Negative Urine Occult Blood Negative Urine Nitrite Negative Urine Bilirubin Negative Urine Urobilinogen Normal Ur Leukocyte Esterase Negative Urine RBC 0 SEEN Urine WBC 0 SEEN Ur Squamous Epith Cells 0 SEEN Urine Bacteria 0 SEEN Urine Mucus 0 SEEN Radiography Diagnostic Testing: Clinical Impression(s) from Imaging Studies Abdomen/Pelvis CT 04/23/25 06:20 IMPRESSION: The right kidney shows moderate hydronephrosis with dilation of the right ureter to the level of a 0.25 cm stone in the distal right ureter at the bladder base, image 164/204. Reading [facility] Discharge Plan Triage Chief Complaint: Flank Pain ED Provider: Hammad Grace Dx/Rx/DC Orders Clinical Impression: Kidney stone on right side, Renal colic Instructions: ED Kidney Stone with Pain Prescriptions: No Action NK Primary Care Provider: Care Physician,No Primary Referrals: Davide Hinson MD [Med Staff - Active Staff, Urology] Care Physician,No Primary [Primary Care Provider, Medical] Activity Restrictions/Additional Instructions: Your blood work today revealed no sign of urinary tract infection or kidney damage. Your CT scan did show a 3 mm stone which would cause your symptoms. Based on the fact you are now feeling much better you most likely have passed the stone into the bladder and should urinate it out over the next day or so. You can take omya-fgh-qleqsdb Motrin/ibuprofen Advil or Aleve for pain control. Keep yourself well-hydrated. If you develop a fever or intractable pain please return to the ER for repeat evaluation. Print Language: Bermudian Disposition Disposition: Home, Self Care Discharge Date/Time: 04/23/25 07:38
[2025-04-23 07:37] VITALS: BP 139/70; PULSE 76; RESP 14; TEMP 36.7; O2SAT 100
== END 2025-04-23 07:38 | disposition home or self-care (01) ==
PROVIDERS: Emergency Provider Emergency Medicine; Visit Provider Emergency Medicine
DX: N13.2 Hydronephrosis with renal and ureteral calculous obstruction (principal)
CPT/HCPCS: 74176; 80048; 81001; 85025; 96361; 96374; 99283; A4216